=== PATIENT | male | born 1955 | race African-American/Black ===

== ENCOUNTER 2019-04-06 09:23 | Emergency (ER) | payer OTHER ==
[2019-04-06 09:34] VITALS: BP 145/87; PULSE 84; TEMP 98.3; BMI 38.3
--- NOTE | 2019-04-06 10:01 | PDOC ---
History of Present Illness - General Chief Complaint: Itching Stated Complaint: ITCHINESS TO PELVIC REGION Time Seen by Provider: 04/06/19 09:50 History Source: Patient Exam Limitations: Clinical Condition - History of Present Illness Initial Comments: 04/06/19 10:09 Patient with no significant past medical history present with complaint of three -day history of itching to lower abdominal fold. Denies any rash to area. Did not take anything for symptoms. Denies any other symptoms Timing/Duration: reports: other (3 days) Past History - Past Medical History Allergies/Adverse Reactions: Allergies Allergy/AdvReac Type Severity Reaction Status Date / Time No Known Allergies Allergy Verified 04/06/19 09:29 Home Medications: Ambulatory Orders Clotrimazole/Betamet Diprop [Lotrisone Cream (Small Tube)] 1 applic TP BID 7 Days #1 tube 04/06/19 COPD: No HTN: Yes - Immunization History Immunization Up to Date: No - Suicide/Smoking/Psychosocial Hx Smoking History: Never smoked Hx Alcohol Use: No Drug/Substance Use Hx: No Review of Systems - Review of Systems Able to Perform ROS?: Yes Is the patient limited Welsh proficient: No Constitutional: No: Chills, Fever, Malaise HEENTM: No: Symptoms Reported Respiratory: No: Symptoms reported Cardiac (ROS): No: Symptoms Reported ABD/GI: No: Symptoms Reported Musculoskeletal: No: Symptoms Reported Integumentary: Yes: Symptoms Reported, See HPI, Pruritus (right lower abdomen). No: Erythema, Rash Neurological: No: Numbness, Paresthesia, Tingling All Other Systems: Reviewed and Negative *Physical Exam - Vital Signs Last Vital Signs Temp Pulse Resp BP Pulse Ox 98.3 F 84 18 145/87 99 04/06/19 09:32 04/06/19 09:32 04/06/19 09:32 04/06/19 09:32 04/06/19 09:32 - Physical Exam General Appearance: Yes: Nourished, Appropriately Dressed. No: Apparent Distress HEENT: positive: Normal ENT Inspection Neck: positive: Supple Respiratory/Chest: positive: Lungs Clear, Normal Breath Sounds. negative: Respiratory Distress, Accessory Muscle Use Gastrointestinal/Abdominal: positive: Normal Bowel Sounds, Flat. negative: Tender Musculoskeletal: positive: Normal Inspection Extremity: positive: Normal Capillary Refill, Normal Inspection Integumentary: positive: Normal Color, Dry. negative: Erythema, Rash, Ecchymosis Neurologic: positive: Fully Oriented, Alert, Normal Mood/Affect, Normal Response Medical Decision Making - Medical Decision Making 04/06/19 10:11 Patient with no significant past medical history present with complaint of three -day history of itching to lower abdominal fold. Denies any rash to area. Did not take anything for symptoms. Denies any other symptoms Clinical exam unremarkable with no rash or skin discoloration on exam . Patient itching symptoms likely from fungal for moisture from a heat wave. Patient be discharged home on Lotrisone cream for rash with dermatology follow-up as needed *DC/Admit/Observation/Transfer Diagnosis at time of Disposition: Dermatophytosis of unspecified site - Discharge Dispostion Disposition: HOME Condition at time of disposition: Stable Decision to Admit order: No - Prescriptions Prescriptions: Clotrimazole/Betamet Diprop [Lotrisone Cream (Small Tube)] 1 applic TP BID 7 Days #1 tube - Referrals Referrals: Racheal Boone MD [Staff Physician] - - Patient Instructions Printed Discharge Instructions: DI for Tinea Corporis Additional Instructions: Use cream as prescribed for no more than 1 week. Follow-up referred dermatology if no improvement in 4 days. - Post Discharge Activity
== END 2019-04-06 10:07 | disposition home or self-care (01) ==
LOC: JERFT 09:23
DX: B35.9 Dermatophytosis, unspecified (principal); I10 Essential (primary) hypertension
CPT/HCPCS: 99281-25